=== PATIENT | female | born 1955 | race Caucasian/White ===

== ENCOUNTER → 2024-09-08 13:10 | Outpatient (REF) | payer OTHER, SELFPAY | LOC: WDC 13:10 | PROVIDERS: ATTENDING PHYSICIAN Family Medicine; REFERRING PHYSICIAN Internal Medicine Rheumatology | DX: Z12.31 Encounter for screening mammogram for malignant neoplasm of breast (principal); M81.0 Age-related osteoporosis without current pathological fracture | CPT/HCPCS: 77063; 77067; 77080 ==

== ENCOUNTER → 2025-06-25 06:45 | Outpatient (REF) | payer OTHER, SELFPAY | LOC: PAVMRI 06:45 | PROVIDERS: ATTENDING PHYSICIAN Neurological Surgery; FAMILY PHYSICIAN Family Medicine | DX: G93.5 Compression of brain (principal) | CPT/HCPCS: 70551; 72141 ==